=== PATIENT | male | born 1955 | race Caucasian/White ===

== ENCOUNTER 2018-02-02 05:32 | Inpatient (IN) | payer OTHER, BC ==
[2018-02-02] MEDS: LACTATED RINGER'S 1,000 ML IV* (07:00)
[2018-02-02] MEDS: TRANEXAMIC ACID 1,000 MG in NS 100 ML INTRA-OP X1 IVPB (07:00)
[2018-02-02] MEDS: SOD CHLORIDE 0.9% 1,000 ML IV ×2 (07:26→11:01)
[2018-02-02] MEDS ORDERED: PROPOFOL 20 ML (07:28)
[2018-02-02] MEDS ORDERED: CEFAZOLIN 1 GM INJ (07:28)
[2018-02-02] MEDS ORDERED: GLYCOPYRROLATE 0.4 MG INJ (07:28)
[2018-02-02] MEDS ORDERED: ROCURONIUM 50 MG INJ (07:28)
[2018-02-02] MEDS ORDERED: NEOSTIGMINE 3 MG/3 ML SYRINGE (07:28)
[2018-02-02] MEDS ORDERED: ONDANSETRON 4 MG INJ (07:29)
[2018-02-02] MEDS ORDERED: FENTAnyl 50 MCG/ML VIAL (07:29)
[2018-02-02] MEDS ORDERED: MIDAZOLAM 1 MG/ML 2 ML INJ (07:29)
[2018-02-02] MEDS ORDERED: morphine SULFATE/PF (10 MG/10 ML) INJ (07:29)
[2018-02-02] MEDS ORDERED: DEXAMETHASONE 4 MG/ML 1 ML INJ (07:29)
[2018-02-02] MEDS ORDERED: DIPHENHYDRAMINE 50 MG INJ IV ×2 (07:30→09:00)
[2018-02-02] MEDS ORDERED: NALOXONE (0.4 MG/ML) INJ IV ×2 (07:30→09:00)
[2018-02-02] MEDS ORDERED: NACL 0.9% 3 ML SYG IV (07:30)
[2018-02-02] MEDS ORDERED: NA PHOSPHATE/BIPHOS 133 ML ENEMA PR (07:30)
[2018-02-02] MEDS ORDERED: SENNA/DOCUSATE NA (8.6MG/50MG) TAB PO (07:30)
[2018-02-02] MEDS ORDERED: BISACODYL 10 MG SUPP PR (07:30)
[2018-02-02] MEDS ORDERED: BETHANECHOL 25 MG TAB PO (07:30)
[2018-02-02] MEDS ORDERED: BUPIVACAINE 0.75%/DEXT (SPINAL) 2 ML INJ (07:32)
[2018-02-02] MEDS: CEFAZOLIN 2 GM/50 ML (PMX) 50 ML IVPB (08:16)
[2018-02-02] MEDS: BACITRACIN 50000 UNITS INJ (08:38)
[2018-02-02] MEDS: POLYMYXIN B 500000 UNIT INJ (08:38)
[2018-02-02] MEDS ORDERED: PHENYLephrine (100 MCG/ML) 5ML SYG (08:40)
[2018-02-02] MEDS ORDERED: FENTAnyl 50 MCG/ML VIAL IV ×3 (09:00)
[2018-02-02] MEDS ORDERED: OXYCODONE/ACETAMINOPHEN (5/325) TAB PO ×2 (09:00)
[2018-02-02] MEDS ORDERED: MEPERIDINE 25 MG INJ IV (09:00)
[2018-02-02] MEDS ORDERED: ONDANSETRON 4 MG INJ IV (09:00)
[2018-02-02] MEDS ORDERED: hydrALAzine 20 MG INJ IV (09:00)
[2018-02-02] MEDS ORDERED: ALBUTEROL 0.083% (NEB) 2.5 MG/3 ML AMP HHN (09:00)
[2018-02-02] MEDS ORDERED: LABETALOL HCL 20MG INJ IV (09:00)
[2018-02-02] MEDS ORDERED: EPHEDrine SULFATE 50 MG/5 ML SYG IV (09:00)
[2018-02-02] MEDS ORDERED: HYDROmorphONE 1 MG/5 ML IV SYRINGE IV ×3 (09:00)
[2018-02-02] MEDS ORDERED: TRIMETHOBENZAMIDE 100 MG/ML VIAL IM (09:00)
[2018-02-02] MEDS ORDERED: MIDAZOLAM 1 MG/ML 2 ML INJ IV (09:00)
[2018-02-02] MEDS ORDERED: IPRATROPIUM (NEB) 0.5 MG/2.5 ML AMP HHN (09:00)
[2018-02-02] MEDS ORDERED: SUGAMMADEX SODIUM 200 MG/2 ML VIAL IV (09:20)
[2018-02-02] MEDS: TRANEXAMIC ACID 1,000 MG in NS 100 ML PRE-OP X1 IVPB (09:30)
[2018-02-02] MEDS: DOCUSATE SODIUM 100 MG CAP PO (10:20)
[2018-02-02] MEDS: ASPIRIN (EC) 325 MG TAB PO (10:20)
[2018-02-02] MEDS: ONDANSETRON 4 MG INJ IV ×3 (10:20→19:30)
[2018-02-02] MEDS: GABAPENTIN 100 MG CAP PO ×3 (11:06→21:11)
[2018-02-02] MEDS: CEFAZOLIN 1 GM/50 ML (PMX) 50 ML IVPB (16:47)
[2018-02-02] MEDS: NICOTINE (14 MG/24 HR) PATCH TRANSDERM (16:47)
[2018-02-02] MEDS: oxyCODONE 5 MG TAB PO ×2 (17:07→22:03)
[2018-02-02] MEDS: ATORVASTATIN 10 MG TAB PO (21:11)
[2018-02-02] MEDS: ALPRAZOLAM 1 MG TAB PO (22:03)
[2018-02-03] MEDS: CEFAZOLIN 1 GM/50 ML (PMX) 50 ML IVPB ×2 (00:07→08:37)
[2018-02-03] MEDS: ONDANSETRON 4 MG INJ IV (00:40)
[2018-02-03] MEDS: oxyCODONE 5 MG TAB PO ×6 (03:49→22:05)
[2018-02-03] MEDS: PANTOPRAZOLE (EC) 40 MG TAB PO (05:36)
[2018-02-03 05:50] LABS: ADD MAN DIFF? NO
[2018-02-03 05:55] LABS: WHITE BLOOD COUNT 14.5 10^3/ul (4.8-10.8)
[2018-02-03 05:55] LABS: ABNORMAL IP MESSAGE 1; BASOPHILS % 0.3 % (0.0-2.0); EOSINOPHILS % 0.1 % (0.0-7.0); HEMOGLOBIN 11.2 g/dl (14.0-18.0); LYMPHOCYTES # 5.9 10^3/ul (0.8-2.9); LYMPHOCYTES % 40.8 % (15.0-51.0); MEAN CORPUSCULAR HEMOGLOBIN 30.9 pg (29.0-33.0); MEAN CORPUSCULAR HGB CONC 32.9 g/dl (32.0-37.0); MEAN CORPUSCULAR VOLUME 93.7 fl (82.0-101.0); MEAN PLATELET VOLUME 10.6 fl (7.4-10.4); MONOCYTE # 1.2 10^3/ul (0.3-0.9); MONOCYTES % 7.9 % (0.0-11.0); NEUTROPHIL # 7.3 10^3/ul (1.6-7.5); NEUTROPHILS % 50.6 % (39.0-77.0); PLATELET COUNT 211 10^3/UL (140-415); POSITIVE DIFF @See below; RED BLOOD COUNT 3.63 10^6/ul (4.70-6.10); RED CELL DISTRIBUTION WIDTH 13.8 % (11.5-14.5)
[2018-02-03 06:04] LABS: HEMOGLOBIN A1C 5.7 % (0-5.9)
[2018-02-03 06:21] LABS: ANION GAP 11 (8-16); BLOOD UREA NITROGEN 16 mg/dl (7-20); CALCIUM 8.7 mg/dl (8.4-10.2); CARBON DIOXIDE 26 mmol/L (21-31); CHLORIDE 107 mmol/L (97-110); CREATININE 0.76 mg/dl (0.61-1.24); GLUCOSE 110 mg/dl (70-220); POTASSIUM 4.7 mmol/L (3.5-5.1); SODIUM 139 mmol/L (135-144)
[2018-02-03 06:31] LABS: CHOL/HDL RATIO 2.5 RATIO; HDL CHOLESTEROL 44 mg/dl (30-78); LDL CHOLESTEROL,CALCULATED 51 mg/dl; TRIGLYCERIDES 87 mg/dl (0-149)
[2018-02-03 06:31] LABS: CHOLESTEROL 112 mg/dl (100-200)
[2018-02-03] MEDS: SOD CHLORIDE 0.9% 1,000 ML IV ×2 (08:26→11:23)
[2018-02-03] MEDS: ASPIRIN (EC) 325 MG TAB PO (08:37)
[2018-02-03] MEDS: FERROUS FUMARATE (SR) TAB PO ×2 (08:37→21:09)
[2018-02-03] MEDS: DOCUSATE SODIUM 100 MG CAP PO ×2 (08:38→21:10)
[2018-02-03] MEDS: CELECOXIB 200 MG CAP PO (08:38)
[2018-02-03] MEDS: GABAPENTIN 100 MG CAP PO ×3 (08:39→21:10)
[2018-02-03] MEDS: NICOTINE (14 MG/24 HR) PATCH TRANSDERM (08:40)
[2018-02-03] MEDS: BENAZEPRIL 20 MG TAB PO (09:00)
[2018-02-03] MEDS: CELECOXIB 100 MG CAP PO ×2 (10:46→21:33)
[2018-02-03] MEDS: ATORVASTATIN 10 MG TAB PO (21:09)
[2018-02-03] MEDS: MAGNESIUM HYDROXIDE 30ML CUP PO (21:10)
[2018-02-04] MEDS: oxyCODONE 5 MG TAB PO ×3 (01:51→11:00)
[2018-02-04 05:18] LABS: WHITE BLOOD COUNT 14.8 10^3/ul (4.8-10.8)
[2018-02-04 05:18] LABS: ABNORMAL IP MESSAGE 1; HEMATOCRIT 36.6 % (42.0-52.0); HEMOGLOBIN 11.9 g/dl (14.0-18.0); MEAN CORPUSCULAR HEMOGLOBIN 30.4 pg (29.0-33.0); MEAN CORPUSCULAR HGB CONC 32.5 g/dl (32.0-37.0); MEAN CORPUSCULAR VOLUME 93.6 fl (82.0-101.0); MEAN PLATELET VOLUME 10.3 fl (7.4-10.4); PLATELET COUNT 211 10^3/UL (140-415); POSITIVE DIFF @See below; RED BLOOD COUNT 3.91 10^6/ul (4.70-6.10); RED CELL DISTRIBUTION WIDTH 13.7 % (11.5-14.5)
[2018-02-04 05:29] LABS: ADD MAN DIFF? YES
[2018-02-04] MEDS: PANTOPRAZOLE (EC) 40 MG TAB PO (05:50)
[2018-02-04 05:55] LABS: ANION GAP 11 (8-16); BLOOD UREA NITROGEN 13 mg/dl (7-20); CALCIUM 8.8 mg/dl (8.4-10.2); CARBON DIOXIDE 30 mmol/L (21-31); CHLORIDE 103 mmol/L (97-110); CREATININE 0.93 mg/dl (0.61-1.24); GLUCOSE 95 mg/dl (70-220); POTASSIUM 4.9 mmol/L (3.5-5.1); SODIUM 139 mmol/L (135-144)
[2018-02-04 06:57] LABS: BASOPHIL #M 0.1 10^3/ul (0.0-0.0); BASOPHILS % (M) 1 % (0-2); EOSINOPHILS % (M) 2 % (0-7); LYMPHOCYTES #M 10.5 10^3/ul (0.8-2.9); LYMPHOCYTES % (M) 71 % (15-51); MONOCYTE #M 0.1 10^3/ul (0.3-0.9); MONOCYTES % (M) 1 % (0-11); PLATELET ESTIMATE NORMAL; REACTIVE LYMPHOCYTES #M 0.1 10^3/ul (0.0-0.0); REACTIVE LYMPHOCYTES% (M) 1 % (0-0); SEGMENTED NEUTROPHILS (M) % 24 % (39-77); SMUDGE%M 25 % (0-0)
[2018-02-04] MEDS: ASPIRIN (EC) 325 MG TAB PO (09:28)
[2018-02-04] MEDS: CELECOXIB 100 MG CAP PO (09:28)
[2018-02-04] MEDS: GABAPENTIN 100 MG CAP PO (09:28)
[2018-02-04] MEDS: FERROUS FUMARATE (SR) TAB PO (09:28)
[2018-02-04] MEDS: DOCUSATE SODIUM 100 MG CAP PO (09:28)
[2018-02-04] MEDS: BENAZEPRIL 20 MG TAB PO (09:29)
[2018-02-04] MEDS: NICOTINE (14 MG/24 HR) PATCH TRANSDERM (09:31)
== END 2018-02-04 12:20 | disposition home health service (06) | DRG 470 ==
LOC: REC 05:32 → MS1 10:40
PROC: 0SR904Z Replacement of Right Hip Joint with Ceramic on Polyethylene Synthetic Substitute, Open Approach (ICD-10-PCS; principal; 2018-02-02 07:30)
DX: M16.0 Bilateral primary osteoarthritis of hip (principal); I10 Essential (primary) hypertension; E78.00 Pure hypercholesterolemia, unspecified; F17.210 Nicotine dependence, cigarettes, uncomplicated; J44.9 Chronic obstructive pulmonary disease, unspecified; K21.9 Gastro-esophageal reflux disease without esophagitis; D72.829 Elevated white blood cell count, unspecified
CPT/HCPCS: 72170; 80048; 80061; 83036; 84443; 85025; 86850; 86900; 86901; 87081; 88304; 88311; 97116; 97161; 97166; 97530; 97535